=== PATIENT | female | born 2005 | race Caucasian/White ===

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

== ENCOUNTER 2025-01-31 22:12 | Emergency (ER) | payer BC, OTHER, SELFPAY ==
--- NOTE | ~2025-01-31 | CT_ITS ---
EXAMINATION: CT soft tissue neck w con DATE: 01/31/2025 23:53 INDICATION: Abnormal lymphadenopathy, pain in the anterior left neck TECHNIQUE: Computed tomography (CT) of the neck was performed with 75 mL Omnipaque-350 intravenous co ntrast. Automated exposure control and iterative reconstruction technique were employed. The dose-michelle gth product was 246.93 mGy-cm. COMPARISON: None FINDINGS: Scattered subcentimeter cystic areas in the thyroid, which require no additional evaluation at this t eddie. The submandibular and parotid glands are symmetric. Enlarged upper right anterior cervical c allyn node measuring 10 mm short axis diameter. Multiple prominent, elongated left anterior cervical c allyn lymph nodes less than 10 mm in short axis diameter. Additional smaller subcentimeter lymph nodes are present in the anterior and posterior cervical chains. No other masses. The superior mediastinu m is unremarkable. The airway is unremarkable. Parapharyngeal and pre-glottic fat planes are pres erved. Normal-appearing enhancing neck vessels. The orbits are unremarkable. Partial opacificati on in the left middle ethmoid sinuses, mild bilateral inferior maxillary mucosal thickening, the wayne ining aerated spaces are clear. Visualized lung parenchyma is clear. The regional bones are normal. IMPRESSION: Right anterior cervical chain lymphadenopathy, with prominent lymph nodes noted in the left neck (les s than 10 mm in short axis diameter) and multiple smaller subcentimeter nodes present in the anterior and posterior cervical chains. Reviewed, dictated and finalized at location K. IMPRESSION: Right anterior cervical chain lymphadenopathy, with prominent lymph nodes noted in the left neck (less than 10 mm in short axis diameter) and multiple smaller subcentimeter nodes present in the anterior and posterior cervical chains.
[2025-01-31 22:17] VITALS: BP 118/80; PULSE 73; RESP 18; TEMP 36.8; O2SAT 100
[2025-01-31 23:15] VITALS: BP 130/86; PULSE 86; RESP 18; TEMP 36.9; O2SAT 98
[2025-01-31 23:19] LABS: Hematocrit 39.6 % (37.0-47.0); Hemoglobin 13.1 g/dL (12.0-15.0); Immature Granulocyte Percent A 0.1 % (0-0.5); Lymphocytes Absolute Auto 2.82 K/mm3 (0.9-3.2); Mean Corpuscular HGB Conc 33.1 g/dl (32-36); Mean Corpuscular Hemoglobin 30.2 pg (26-34); Mean Corpuscular Volume 91.2 fl (80-100); Nucleated Red Blood Cells Absolute Auto 0.000 K/mm3 (0.0-0.012); Nucleated Red Blood Cells Perc 0.0 % (0.0-0.2); Platelet Count Result 305 k/mm3 (150-375); Red Blood Count 4.34 M/mm3 (4.2-5.4); White Blood Count 9.1 K/mm3 (4.5-10.0)
[2025-01-31 23:30] LABS: Anion Gap 7 mmol/L (4-12); Blood Urea Nitrogen 9 mg/dL (7-17); Calcium 9.1 mg/dL (8.4-10.2); Carbon Dioxide 26 mmol/L (22-30); Chloride 105 mmol/L (98-107); Estimated CRCL calculation 84 ml/min; Estimated Glomerular Filt Rate > 60; Glucose 101 mg/dL (65-110); Potassium 3.8 mmol/L (3.4-5.0); Sodium 138 mmol/L (137-145)
--- NOTE | 2025-01-31 23:41 | ED_ITS ---
HPI - URI/Sore Throat General Chief Complaint: Upper Respiratory Infection Stated Complaint: sore throat Time Seen by Provider: 01/31/25 22:14 Source: patient Mode of arrival: ambulatory Limitations: no limitations History of Present Illness HPI Narrative: Patient is a 19 y/o female who presents to the ED with c/o anterior left-sided neck pain. Patient reports having discomfort intermittently throughout her left-sided neck over the past 1 month. States she will experience a catching/pulling sensation in her L sided neck. States this will occur with talking or certain movements/turning her neck. Over the past 1-1.5 days, patient has been having pain throughout her bilateral anterior neck, over the area of her thyroid region. Pain is worse throughout the left-sided neck. Denies difficulty breathing or swallowing. Denies sore throat, recent illness, cough congestion, fevers. Related Data Home Medications ?Medication ?Instructions ?Recorded ?Confirmed ?Last Taken ?Type drospirenone 3 mg-ethinyl 1 tablet PO DAILY 02/21/21 04/08/21 Unknown History estradiol 0.02 mg tablet (Loryna (28)) Allergies Allergy/AdvReac Type Severity Reaction Status Date / Time No Known Allergies Allergy Verified 01/31/25 22:28 Review of Systems 2 Review of Systems: All systems reviewed & are unremarkable except as noted in HPI. All systems reviewed & are unremarkable except as noted in HPI and below PMFSH Past Medical History Medical History Contusion of ankle, left No acute medical problems Surgical History Surgical History History of tonsillectomy 2010 in Family History Family History Other Depression Diabetes mellitus Heart disease History of colon cancer History of kidney cancer History of leukemia Hypertension No acute medical problems Social History Social History Second hand tobacco smoke exposure: No Living arrangements: with family Occupation/Education: student Additional occupation/education comments: Employed at [employer] Gender identity (if verbalized by the patient): Female Exam 2 Narrative: GENERAL: Well appearing, well-nourished, non-toxic, in no acute distress. HEAD: Normocephalic, atraumatic. NECK: Solo anterior cervical lymphadenopathy palpated more in left mid cervical chain. Mildly tender to palpation. Some small posterior lymphadenopathy palpated as well bilaterally. These are all soft and easily movable. Not fixed or rigid. No appreciable enlargement of thyroid gland. No appreciable nodules. No stridor or trismus. Maintaining secretions. No tonsillar hypertrophy or exudate. Uvula midline and nonedematous. RESPIRATORY: Airway patent, respirations nonlabored. Clear to auscultation bilaterally, no rales, rhonchi, wheezing. CARDIOVASCULAR: Regular rate and rhythm MUSCULOSKELETAL: Moves all extremities. No gross deformities. SKIN: Warm, dry, normal color. NEURO: A&O X3. Speech clear. PSYCHIATRIC: Appropriate mood and affect. Normal interaction. Course Vital Signs Vital signs: Vital Signs Temperature 98.2 F 01/31/25 22:17 Pulse Rate 73 01/31/25 22:17 Respiratory Rate 18 01/31/25 22:17 Blood Pressure 118/80 01/31/25 22:17 Pulse Oximetry 100 01/31/25 22:17 Oxygen Delivery Room Air 01/31/25 22:17 Temperature 98.4 F 02/01/25 00:12 Pulse Rate 86 02/01/25 00:12 Respiratory Rate 18 02/01/25 00:12 Blood Pressure 115/75 02/01/25 00:12 Pulse Oximetry 100 02/01/25 00:12 Oxygen Delivery Room Air 01/31/25 22:17 MDM - URI/Sore Throat MDM Narrative Medical decision making narrative: Patient presented to ED with concern for cervical lymphadenopathy, cervical pain. Has been ongoing intermittently for the past 1 month, worse over the past couple days. Vital signs are stable upon arrival. Patient is in no acute distress. No evidence of respiratory or airway compromise/involvement. ENT exam is otherwise unremarkable. Laboratory studies are reassuring. No leukocytosis. Stable electrolytes. Atlantic negative. CT soft tissue neck was obtained and showing bilateral anterior and posterior cervical lymphadenopathy. Right anterior cervical chain does have enlarged lymph node approximate 10 mm. There are multiple other smaller left-sided anterior cervical lymph nodes. Airway is unremarkable. There are no concerning features appreciated on imaging. Additionally on palpation of lymph nodes on exam, they are very soft and easily movable. Low suspicion for lymphoma picture. Patient is otherwise denying B type symptoms. Discussed lab and imaging findings with patient. Discussed possibility of viral etiology causing symptoms. Recommended anti- inflammatories for pain and symptom relief. Will refer to ENT for further evaluation. Advised if viral, symptoms should resolve on their own. Discussed very strict return precautions. Patient in agreement with plan. Feels comfortable going home. Discharged in stable condition. Medical Records Attestation: I reviewed the patient's medical records. Lab Data Attestation: I reviewed the patient's lab results. 01/31/25 23:12 01/31/25 23:12 Labs: Lab Results 01/31/25 02/01/25 Range/Units 23:12 00:52 WBC 9.1 (4.5-10.0) K/mm3 RBC 4.34 (4.2-5.4) M/mm3 Hgb 13.1 (12.0-15.0) g/dL Hct 39.6 (37.0-47.0) % MCV 91.2 (80-100) fl MCH 30.2 (26-34) pg MCHC 33.1 (32-36) g/dl RDW 12.4 (11.5-14.5) % Plt Count 305 (150-375) k/mm3 MPV 8.6 (7.4-10.4) fl Immature Gran % (Auto) 0.1 (0-0.5) % Neut % (Auto) 53.7 (45.5-73.1) % Lymph % (Auto) 31.0 (18.3-44.2) % Atlantic % (Auto) 12.4 H (2.6-8.5) % Eos % (Auto) 2.3 (0-4.4) % Baso % (Auto) 0.5 (0.2-1.2) % Lymph # (Auto) 2.82 (0.9-3.2) K/mm3 Atlantic # (Auto) 1.1 H (0.1-0.6) K/mm3 Eos # (Auto) 0.2 (0-0.3) K/mm3 Baso # (Auto) 0.1 (0.0-0.1) K/mm3 Abs Immat Gran (auto) 0.01 (0.00-0.031) K/mm3 Absolute Neuts (auto) 4.9 (1.3-6.7) K/mm3 Absolute Nucleated RBC 0.000 (0.0-0.012) K/mm3 Nucleated RBC % 0.0 (0.0-0.2) % Sodium 138 (137-145) mmol/L Potassium 3.8 (3.4-5.0) mmol/L Chloride 105 (98-107) mmol/L Carbon Dioxide 26 (22-30) mmol/L Anion Gap 7 (4-12) mmol/L BUN 9 (7-17) mg/dL Creatinine 0.84 (0.7-1.0) mg/dL Estim Creat Clear Calc 84 ml/min Estimated GFR > 60 (59 - ) Glucose 101 (65-110) mg/dL Calcium 9.1 (8.4-10.2) mg/dL Monoscreen Negative (Negative) Imaging Data Attestation: I personally reviewed and interpreted this imaging study as follows: Radiologist's impression: ITS Impressions Soft Tissue Neck CT 01/31/25 23:55 IMPRESSION: Right anterior cervical chain lymphadenopathy, with prominent lymph nodes noted in the left neck (less than 10 mm in short axis diameter) and multiple smaller subcentimeter nodes present in the anterior and posterior cervical chains. Discharge Plan Discharge Clinical Impression: Cervical lymphadenopathy Patient Disposition: Home Condition: Stable Instructions: Antibiotic Form, Lymphadenopathy (ED) Additional Instructions: Recommend Tylenol and ibuprofen as needed for discomfort. Follow-up with your primary care doctor and ENT for further evaluation. Return to the ED if you experience worsening or severe pain or swelling, difficulty breathing or swallowing, unable to keep down food or drink, persistent fevers, or any other symptoms of concern. Patient Language: Romansh Prescriptions: No Action drospirenone-ethinyl estradiol [Loryna (28)] 3-0.02 mg tablet 1 tablet PO DAILY Follow-up/Referrals: Ayala Wagner MD [Primary Care Provider] - Rico Mckeon MD [Physician] - (ENT) Edgar Carney MD [Physician] - (PRIMARY CARE) Time of Disposition: 01:26
[2025-02-01 00:12] VITALS: BP 115/75; PULSE 86; RESP 18; TEMP 36.9; O2SAT 100
[2025-02-01 01:05] LABS: Negative Monotest Control Negative (Negative); Positive Monotest Control Positive (Positive)
== END 2025-02-01 02:00 | disposition home or self-care (01) ==
PROVIDERS: Emergency Provider Physician Assistant; PCP Pediatrics
DX: R59.1 Generalized enlarged lymph nodes (principal)
CPT/HCPCS: 36415; 70491; 80048; 85025; 86308; 99284; Q9967

== ENCOUNTER 2025-04-20 11:19 | Emergency (ER) | payer BC, SELFPAY ==
--- NOTE | ~2025-04-20 | XR_ITS ---
EXAMINATION: XR knee LT min 4V, 04/20/2025 12:17 CDT HISTORY: injury COMPARISON: No comparisons available. Findings: No acute fracture or malalignment. No significant degenerative changes. Soft tissues unremarkable. Impression: No acute fracture or malalignment. Reviewed, dictated and finalized at location P. Impression: No acute fracture or malalignment.
[2025-04-20 11:40] VITALS: BP 117/79; PULSE 83; RESP 16; TEMP 36.8; O2SAT 100
--- NOTE | 2025-04-20 13:24 | ED_ITS ---
HPI - General Adult General Chief complaint: Extremity Injury, Lower Stated complaint: left knee pain Time Seen by Provider: 04/20/25 12:05 History of Present Illness HPI narrative: Patient is a 19-year-old female who presents ER with left knee pain. She has a training exercise for her work couple days ago when she stepped in a hole and fell directly onto her left knee. She has pain with bearing weight. She has bruising and swelling to the knee. Has limited range of motion due to pain. She has been taking Tylenol and ibuprofen without improvement. No numbness or tingling. She did not strike her head or lose consciousness. Related Data Home Medications ?Medication ?Instructions ?Recorded ?Confirmed ?Last Taken ?Type drospirenone 3 mg-ethinyl 1 tablet PO DAILY 02/21/21 1 Unknown History estradiol 0.02 mg tablet (Loryna (28)) Allergies Allergy/AdvReac Type Severity Reaction Status Date / Time No Known Allergies Allergy Verified 04/20/25 11:43 Review of Systems Review of Systems: All systems reviewed & are unremarkable except as noted in HPI and below Constitutional: Constitutional: Reports no additional constitutional complaints Musculoskeletal: Musculoskeletal: Reports no additional musculoskeletal complaints Integumentary/Breasts: Skin/Breast: Reports system reviewed and no additional complaints, except as docu Neurologic: Reports system reviewed and no additional complaints, except as documented [facility] Past Medical History Medical History Contusion of ankle, left No acute medical problems Surgical History Surgical History History of tonsillectomy 2011 in Family History Family History Other Depression Diabetes mellitus Heart disease History of colon cancer History of kidney cancer History of leukemia Hypertension No acute medical problems Social History Social History Second hand tobacco smoke exposure: No Living arrangements: with family Occupation/Education: student Additional occupation/education comments: Employed at [employer] Gender identity (if verbalized by the patient): Female Exam Narrative: GENERAL: Well-appearing, well-nourished, and in no acute distress. HEAD: Normocephalic, atraumatic. ENT: Mucous membranes moist. EXTREMITIES: Left lower extremity with bruising over the patella and the medial joint line. There is mild effusion of the knee with tenderness over the medial joint line. Has discomfort with range of motion but able to perform them. Patellar tendon intact. SKIN: Warm, dry, no rash. NEURO: No focal deficits. Alert and oriented x3. PSYCH: Normal mood and affect. Course Course Emergency Course: Discussed conservative therapy. No osseous abnormality. Discussed possibility of meniscus injury if pain and not improving over the next week. Crutches/rest/ice/compression/elevation. Vital Signs Vital signs: Vital Signs Temperature 98.2 F 04/20/25 11:40 Pulse Rate 83 04/20/25 11:40 Respiratory Rate 16 04/20/25 11:40 Blood Pressure 117/79 04/20/25 11:40 Pulse Oximetry 100 04/20/25 11:40 Temperature 98.2 F 04/20/25 11:40 Pulse Rate 83 04/20/25 11:40 Respiratory Rate 16 04/20/25 11:40 Blood Pressure 117/79 04/20/25 11:40 Pulse Oximetry 100 04/20/25 11:40 Medical Decision Making Vital Signs Vital Signs: Vital Signs Temperature 98.2 F 04/20/25 11:40 Pulse Rate 83 04/20/25 11:40 Respiratory Rate 16 04/20/25 11:40 Blood Pressure 117/79 04/20/25 11:40 Pulse Oximetry 100 04/20/25 11:40 Temperature 98.2 F 04/20/25 11:40 Pulse Rate 83 04/20/25 11:40 Respiratory Rate 16 04/20/25 11:40 Blood Pressure 117/79 04/20/25 11:40 Pulse Oximetry 100 04/20/25 11:40 Imaging Data Radiologist's impression: ITS Impressions Knee X-Ray 04/20/25 12:24 Impression: No acute fracture or malalignment. Discharge Plan Discharge Clinical Impression: Contusion of knee Patient Disposition: Home Condition: Stable Instructions: Contusion in Adults (ED), Knee Pain (ED) Additional Instructions: If you are still having difficulty bearing weight in the next 5-7 days is recommended you follow-up with your primary care doctor or Orthopedic surgery for further evaluation. Return the ER if you have chest pain with shortness of breath, you suffered a new injury, or have additional concerns. Patient Language: Pashto Prescriptions: New naproxen 375 mg tablet 375 mg PO BID Qty: 14 0RF No Action drospirenone-ethinyl estradiol [Loryna (28)] 3-0.02 mg tablet 1 tablet PO DAILY Follow-up/Referrals: Ayala Wagner MD [Primary Care Provider, Pediatrics] - 1 Week Rahat Justin MD [Physician, Orthopedics] - 1 Week
== END 2025-04-20 13:45 | disposition home or self-care (01) ==
PROVIDERS: Emergency Provider Emergency Medicine; PCP Pediatrics
DX: S80.02XA Contusion of left knee, initial encounter (principal); W17.2XXA Fall into hole, initial encounter
CPT/HCPCS: 73564; 99283